=== PATIENT | female | born 1965 | race Hispanic/Latino ===

== ENCOUNTER 2022-05-17 02:57 | Inpatient (IN) | payer OTHER, SELFPAY ==
--- OUTSIDE RECORDS SUMMARY | 2022-05-17 03:02 | XMS REPORT | Continuity of Care Document ---
:1965 Author Organization [facility] t Address [address] [place] [address] Care Team Providers Name Role Phone Jed Ginette Primary Care Physician [phone] Problems This patient has no known problems. Allergies, Adverse Reactions, Alerts This patient has no known allergies or adverse reactions. Medications Ordered Filled Start Stop Current Ordering Indication Dosage Frequency Signature Comments Components Source Medication Medication Date Date Medication? Clinician (SIG) Name Name TAKE 1 2021-06 No TABLET AT 1-18 BEDTIME. 00:00: 00 Dose 2021-06 No Unknown 1-17 00:00: 00 Dose 2021-1 No Unknown 1-17 00:00: 00 Dose 2021-0 No Unknown 6-01 00:00: 00 Dose 2021-0 No Unknown 5-31 00:00: 00 Dose 2021-0 No Unknown 5-31 00:00: 00 Dose 2021-0 No Unknown 5-31 00:00: 00 meloxicam 2021-0 No 1mg 15 mg 4-05 tablet 00:00: 00 Benadryl 2 2021-0 No % % topical 3-23 gel 00:00: 00 triamcinolo 2021-0 No 1% ne 3-23 acetonide 00:00: 0.1 % 00 topical cream triamcinolo 2021-0 No 1% ne 3-23 acetonide 00:00: 0.1 % 00 topical cream Benadryl 2-0 No 1mg Allergy 25 3-23 mg tablet 00:00: 00 Benadryl 2-0 No 1mg Allergy 25 3-23 mg tablet 00:00: 00 Dose 2021-0 No Unknown 3-23 00:00: 00 Dose 2022-0 No Unknown 3-23 00:00: 00 Dose 2022-0 No Unknown 3-23 00:00: 00 Dose 2022-0 No Unknown 3-23 00:00: 00 Dose 2022-0 No Unknown 3-23 00:00: 00 Dose 2022-0 No Unknown 3-23 00:00: 00 Dose 2022-0 No Unknown 3-23 00:00: 00 Dose 2022-0 No Unknown 3-23 00:00: 00 Dose 2022-0 No Unknown 3-23 00:00: 00 atorvastati 2-0 No 1mg n 10 mg 3-17 tablet 00:00: 00 Dose 2022-0 No Unknown 3-15 00:00: 00 Dose 2022-0 No Unknown 3-15 00:00: 00 Dose 2022-0 No Unknown 3-15 00:00: 00 Dose 2022-0 No Unknown 3-15 00:00: 00 Dose 2022-0 No Unknown 3-15 00:00: 00 Dose 2022-0 No Unknown 3-15 00:00: 00 Dose 2022-0 No Unknown 3-15 00:00: 00 Dose 2022-0 No Unknown 3-15 00:00: 00 Dose 2022-0 No Unknown 3-15 00:00: 00 Dose 2022-0 No Unknown 3-15 00:00: 00 Dose 2022-0 No Unknown 3-15 00:00: 00 Dose 2022-0 No Unknown 3-15 00:00: 00 Dose 2022-0 No Unknown 3-15 00:00: 00 Dose 2022-0 No Unknown 3-15 00:00: 00 Dose 2022-0 No Unknown 3-15 00:00: 00 Dose 2022-0 No Unknown 3-15 00:00: 00 Dose 2022-0 No Unknown 3-15 00:00: 00 Dose 2022-0 No Unknown 3-15 00:00: 00 Dose 2022-0 No Unknown 3-15 00:00: 00 Dose 2022-0 No Unknown 3-15 00:00: 00 Dose 2022-0 No Unknown 3-15 00:00: 00 Dose 2022-0 No Unknown 3-15 00:00: 00 Dose 2022-0 No Unknown 3-15 00:00: 00 Dose 2022-0 No Unknown 3-15 00:00: 00 Dose 2022-0 No Unknown 3-15 00:00: 00 Dose 2022-0 No Unknown 3-15 00:00: 00 Dose 2-0 No Unknown 3-15 00:00: 00 Dose 2-0 No Unknown 3-15 00:00: 00 Dose 2022-0 No Unknown 3-15 00:00: 00 Dose 2-0 No Unknown 3-15 00:00: 00 Dose 2-0 No Unknown 3-15 00:00: 00 Dose 2-0 No Unknown 3-15 00:00: 00 Dose 2-0 No Unknown 3-15 00:00: 00 Dose 2-0 No Unknown 3-15 00:00: 00 Dose 2-0 No Unknown 3-15 00:00: 00 Dose 2-0 No Unknown 3-15 00:00: 00 Dose 2-0 No Unknown 3-15 00:00: 00 Dose 2-0 No Unknown 3-15 00:00: 00 Dose 2-0 No Unknown 3-15 00:00: 00 Novolin 2021-0 No unit/mL 70-30 3-15 (70-30) FlexPen 00:00: U-100 00 Insulin 100 unit/mL (70-30) subcutaneou s losartan 50 2021-0 No 1mg mg tablet 3-15 00:00: 00 metformin 2021-0 No 1mg 500 mg 3-15 tablet 00:00: 00 cyclobenzap 2021-0 No 1mg rine 10 mg 3-15 tablet 00:00: 00 Dose 2-0 No Unknown 3-15 00:00: 00 Dose 2-0 No Unknown 3-15 00:00: 00 Dose 2-0 No Unknown 3-15 00:00: 00 Dose 2-0 No Unknown 3-15 00:00: 00 Dose 2-0 No Unknown 3-15 00:00: 00 Dose 2-0 No Unknown 3-15 00:00: 00 benzonatate 2020-1 No 1mg 100 mg 2-20 capsule 00:00: 00 Novolin 1 No unit/mL 70-30 0-18 (70-30) FlexPen 00:00: U-100 00 Insulin 100 unit/mL (70-30) subcutaneou s Caladryl 1 2021-1 No 1% %-8 % 0-18 lotion 00:00: 00 losartan 50 2020-1 No 1mg mg tablet 0-18 00:00: 00 metformin 2020-1 No 1mg 500 mg 0-18 tablet 00:00: 00 loratadine 2020-1 No 1mg 10 mg 0-18 tablet 00:00: 00 metformin 2020-0 No 1mg 500 mg 8-04 tablet 00:00: 00 amoxicillin 2020-0 No 1mg 875 8-04 mg-potassiu 00:00: m 00 clavulanate 125 mg tablet Bromfed DM 2020-0 No 10mg/5 2 mg-30 8-04 mL mg-10 mg/5 00:00: mL oral 00 syrup mupirocin 2 2020-0 No 1% % topical 5-07 ointment 00:00: 00 losartan 50 2020-0 No 1mg mg tablet 5-07 00:00: 00 dicyclomine 2020-0 No 1mg 20 mg 5-07 tablet 00:00: 00 Novolin 2020-0 No unit/mL 70-30 4-30 (70-30) FlexPen 00:00: U-100 00 Insulin 100 unit/mL (70-30) subcutaneou s metformin 2020-0 No 1mg 500 mg 4-30 tablet 00:00: 00 Cipro 500 2020-0 No 1mg mg tablet 4-10 00:00: 00 mupirocin 2 2020-0 No 1% % topical 3-22 ointment 00:00: 00 mupirocin 2 2020-0 No 1% % topical 3-16 ointment 00:00: 00 sulfamethox 2020-0 No 1mg azole 800 3-16 mg-trimetho 00:00: prim 160 mg 00 tablet Valtrex 1 2020-0 No 1gram gram tablet 3-16 00:00: 00 Novolin 2019-06 No unit/mL 70-30 0-15 (70-30) FlexPen 00:00: U-100 00 Insulin 100 unit/mL (70-30) subcutaneou s cephalexin 2019- No 1mg 500 mg 0-15 capsule 00:00: 00 Immunizations Ordered Immunization Filled Immunization Date Status Commen ts Source Name Name [facility], ([employer] [employer]) 2021-09-10 Completed mRNA, LNP-S, PF, 30 00:00:00 mcg/0.3 mL dose, stanley-sucrose Vital Signs Vital Name Observation Time Observation Value Comments Source BP Systolic 2022-05-02 10:10:00 181 mm[Hg] BP Diastolic 2022-05-02 10:10:00 94 mm[Hg] Weight Measured 2022-05-02 10:10:00 174.20 pounds Height Measured 2022-05-02 10:10:00 59.45 inches Body Temperature 2022-05-02 10:10:00 98.00 degrees Heart Rate 2022-05-02 10:10:00 79.00 /min Respiratory Rate 2022-05-02 10:10:00 18.00 /min BP Systolic 2021-11-25 15:12:00 146 mm[Hg] BP Diastolic 2021-11-25 15:12:00 76 mm[Hg] Weight Measured 2021-11-25 15:12:00 172.00 pounds Height Measured 2021-11-25 15:12:00 59.45 inches Body Temperature 2021-11-25 15:12:00 97.90 degrees Heart Rate 2021-11-25 15:12:00 82.00 /min Respiratory Rate 2021-11-25 15:12:00 BP Systolic 2021-09-17 17:15:00 170 mm[Hg] BP Diastolic 2021-09-17 17:15:00 106 mm[Hg] Weight Measured 2021-09-17 17:15:00 173.00 pounds Height Measured 2021-09-17 17:15:00 59.45 inches Body Temperature 2021-09-17 17:15:00 98.10 degrees Heart Rate 2021-09-17 17:15:00 85.00 /min Respiratory Rate 2021-09-17 17:15:00 16.00 /min BP Systolic 2021-08-27 17:07:00 164 mm[Hg] BP Diastolic 2021-08-27 17:07:00 90 mm[Hg] Weight Measured 2021-08-27 17:07:00 170.40 pounds Height Measured 2021-08-27 17:07:00 59.45 inches Body Temperature 2021-08-27 17:07:00 97.30 degrees Heart Rate 2021-08-27 17:07:00 Respiratory Rate 2021-08-27 17:07:00 BP Systolic 2021-06-03 14:25:00 BP Diastolic 2021-06-03 14:25:00 Weight Measured 2021-06-03 14:25:00 160.00 pounds Height Measured 2021-06-03 14:25:00 59.45 inches Body Temperature 2021-06-03 14:25:00 Heart Rate 2021-06-03 14:25:00 Respiratory Rate 2021-06-03 14:25:00 BP Systolic 2021-04-01 10:05:00 156 mm[Hg] BP Diastolic 2021-04-01 10:05:00 84 mm[Hg] Weight Measured 2021-04-01 10:05:00 164.80 pounds Height Measured 2021-04-01 10:05:00 59.45 inches Body Temperature 2021-04-01 10:05:00 97.60 degrees Heart Rate 2021-04-01 10:05:00 90.00 /min Respiratory Rate 2021-04-01 10:05:00 BP Systolic 2020-10-19 13:33:00 150 mm[Hg] BP Diastolic 2020-10-19 13:33:00 76 mm[Hg] Weight Measured 2020-10-19 13:33:00 172.00 pounds Height Measured 2020-10-19 13:33:00 59.45 inches Body Temperature 2020-10-19 13:33:00 99.10 degrees Heart Rate 2020-10-19 13:33:00 86.00 /min Respiratory Rate 2020-10-19 13:33:00 17.00 /min BP Systolic 2020-10-12 16:40:00 157 mm[Hg] BP Diastolic 2020-10-12 16:40:00 71 mm[Hg] Weight Measured 2020-10-12 16:40:00 170.80 pounds Height Measured 2020-10-12 16:40:00 61.00 inches Body Temperature 2020-10-12 16:40:00 98.30 degrees Heart Rate 2020-10-12 16:40:00 76.00 /min Respiratory Rate 2020-10-12 16:40:00 17.00 /min BP Systolic 2020-09-22 13:58:00 151 mm[Hg] BP Diastolic 2020-09-22 13:58:00 81 mm[Hg] Weight Measured 2020-09-22 13:58:00 174.00 pounds Height Measured 2020-09-22 13:58:00 61.00 inches Body Temperature 2020-09-22 13:58:00 98.40 degrees Heart Rate 2020-09-22 13:58:00 88.00 /min Respiratory Rate 2020-09-22 13:58:00 18.00 /min BP Systolic 2020-08-28 10:01:00 180 mm[Hg] BP Diastolic 2020-08-28 10:01:00 104 mm[Hg] Weight Measured 2020-08-28 10:01:00 174.20 pounds Height Measured 2020-08-28 10:01:00 61.00 inches Body Temperature 2020-08-28 10:01:00 98.60 degrees Heart Rate 2020-08-28 10:01:00 86.00 /min Respiratory Rate 2020-08-28 10:01:00 16.00 /min Procedures This patient has no known procedures. Plan of Care Planned Activity Planned Date Details Comments Source Goal Plan of Care Note [code = 09538-3] Goal Plan of Care Note [code = 17068-5] Goal Plan of Care Note [code = 79571-7] Goal Plan of Care Note [code = 81012-7] Goal Plan of Care Note [code = 44365-2] Goal Plan of Care Note [code = 35882-7] Goal Plan of Care Note [code = 37000-7] Goal Plan of Care Note [code = 62142-7] Goal Plan of Care Note [code = 11883-7] Goal Plan of Care Note [code = 80961-1] Goal Plan of Care Note [code = 66723-2] Goal Plan of Care Note [code = 61109-8] Goal Plan of Care Note [code = 71739-2] Goal Plan of Care Note [code = 08658-7] Goal Plan of Care Note [code = 93589-5] Goal Plan of Care Note [code = 15520-1] Goal Plan of Care Note [code = 76614-5] Goal Plan of Care Note [code = 46168-2] Goal Plan of Care Note [code = 70720-2] Goal Plan of Care Note [code = 33507-3] Goal Plan of Care Note [code = 62887-4] Goal Plan of Care Note [code = 67949-4] Goal Plan of Care Note [code = 59693-5] Goal Plan of Care Note [code = 30003-0] Goal Plan of Care Note [code = 28217-9] Encounters Start End Encounter Admission Attending Care Care Encounter Source Date/Time Date/Time Type Type Clinicians Facility Department ID 2022-05-16 2022-05-16 Outpatient [facility] [id number] 022 Leonardo 10:34:16 10:34:16 [address] [place] 2022-05-02 2022-05-02 Outpatient [facility] [id number] Leonardo 10:03:25 10:03:25 [address] [place] 2022-05-02 2022-05-02 Outpatient [id number] ae [id number] 00:00:00 00:00:00 Visit [id number] Results Test Description Test Time Test Comments Results Result Comments Source HEMOGLOBIN A1c 2021-08-29 08:26:50 Test Item Value Reference Range Interpretation Comme nts HEMOGLOBIN A1c (test code = 12.8 % 4.2-5.6 H [employer] 28669) GUIDELINES FOR HGB A1C: PREDIABETES/INC REASED RISK . . . . . . . 5.7-6.4% DIAG NOSIS OF DIABETES . . . . . . . . . >=6 .5% WITH CONFIRMATION OR APPROPRIATE SYM PTOMS NOTE: ASSAY MAY BE AFFECTED BY HEM OGLOBINOPATHIES (SICKLE CELL ANEMIA, S- C DISEASE, OTHERS) OR ARTIFICIALLY LO WERED BY DECREASED RED CELL SURVIVAL ( HEMOLYTIC ANEMIAS, BLOOD LOSS, ETC.). CO NSIDER ALTERNATE TESTING OR LABORATORY C ONSULTATION. UNLESS OTHERWISE INDIC ATED, ALL TESTING PERFORMED [facility], [facility]. [address] [place] [id number] [place] [address] DEION DIRECTOR: DARSHANA JAMES M.D. CLIA NUMBER [id number] [place] [id number] COMPREHENSIVE METABOLIC [id number] 02:55:12 Test Item Value Reference Range Interpretation Comments GLUCOSE (test code = 86 MG/DL 70-99 2216) BUN (test code = 21 MG/DL 6-20 H 2207) CREATININE (test 0.63 MG/DL 0.60-1.30 code = 2214) eGFR (2020 CKD-EPI) 103 >60 (test code = 88279) ML/MIN/1.73 CALC BUN/CREAT (test 33 RATIO 6-28 H code = 2235) SODIUM (test code = 142 MEQ/L 660-513 4686) POTASSIUM (test code 5.1 MEQ/L 3.5-5.4 = 2227) CHLORIDE (test code 103 MEQ/L 95-107 = 2214) CARBON DIOXIDE (test 27 MEQ/L 19-31 code = 220) CALCIUM (test code = 9.9 MG/DL 8.5-10.5 2208) PROTEIN, TOTAL (test 7.0 G/DL 6.1-8.3 code = 222) ALBUMIN (test code = 4.0 G/DL 3.5-5.2 2200) CALC GLOBULIN (test 3.0 G/DL 1.9-3.7 code = 2240) CALC A/G RATIO (test 1.3 RATIO 1.0-2.6 code = 2234) BILIRUBIN, TOTAL <0.2 MG/DL See_Comment [Automated message] (test code = 2207) The syste m which generated this result transmit phoebe reference range : <=1.2. The refe rence range was not u sed to interpret th is result as normal/abnormal . ALKALINE PHOSPHATASE 90 U/L 40-136 (test code = 2204) AST (test code = 16 U/L 9-40 2217) ALT (test code = 15 U/L 5-40 2218) LIPID [id number] 02:55:12 Test Item Value Reference Range Interpretation Comments CHOLESTEROL (test 250 MG/DL <200 H code = 2210) TRIGLYCERIDES (test 200 MG/DL <150 H code = 2232) HDL CHOLESTEROL (test 48 MG/DL >39 code = 2220) CALC LDL CHOL (test 166 MG/DL <100 H NOTE: C ALCULATED LDL code = 2237) IS BASED ON JONEL-COBOS METHOD WHICHINCLUDES ADJUSTABLE TRIGLYCERIDE:VL DL CHOLESTEROL RAT IO.THIS FACTOR VARIES B Y MEASURED TRIGLY CERIDE AND NON-HDLCHOL ESTEROL CONCENTRATIONS WITH INCREASED CALCU LATED LDL SEENIN HIGH ER TRIGLYCERIDE OR LOWER NON-HDL SPECIME NS. FOR MOREINFORMATION , SEE CLIENT ANNOUNCE MENT AT [email or web address] RISK RATIO LDL/HDL 3.46 RATIO <3.22 H (test code = 2238) COMPREHENSIVE METABOLIC [id number] 00:00:00 Test Item Value Reference Range Interpretation Comments GLUCOSE (test code = 2217) 86 MG/DL BUN (test code = 2208) 21 MG/DL CREATININE (test code = 2214) 0.63 MG/DL eGFR (2020 CKD-EPI) (test 103 ML/MIN/1.73 code = 62562) CALC BUN/CREAT (test code = 33 RATIO 2235) SODIUM (test code = 2231) 142 MEQ/L POTASSIUM (test code = 2228) 5.1 MEQ/L CHLORIDE (test code = 2215) 103 MEQ/L CARBON DIOXIDE (test code = 27 MEQ/L 2205) CALCIUM (test code = 2209) 9.9 MG/DL PROTEIN, TOTAL (test code = 7.0 G/DL 2228) ALBUMIN (test code = 2201) 4.0 G/DL CALC GLOBULIN (test code = 3.0 G/DL 2240) CALC A/G RATIO (test code = 1.3 RATIO 4) BILIRUBIN, TOTAL (test code = <0.2 MG/DL 2206) ALKALINE PHOSPHATASE (test 90 U/L code = 2204) AST (test code = 2218) 16 U/L ALT (test code = 2219) 15 U/L LIPID [id number] 00:00:00 Test Item Value Reference Range Interpretation Comments CHOLESTEROL (test code = 2210) 250 MG/DL TRIGLYCERIDES (test code = 2232) 200 MG/DL HDL CHOLESTEROL (test code = 2220) 48 MG/DL CALC LDL CHOL (test code = 2237) 166 MG/DL RISK RATIO LDL/HDL (test code = 3.46 RATIO 2238) LIPID [id number] 00:00:00 Test Item Value Reference Range Interpretation Comments CHOLESTEROL (test code = 2210) 250 MG/DL TRIGLYCERIDES (test code = 2232) 200 MG/DL HDL CHOLESTEROL (test code = 2220) 48 MG/DL CALC LDL CHOL (test code = 2237) 166 MG/DL RISK RATIO LDL/HDL (test code = 3.46 RATIO 2238) HEMOGLOBIN [id number] 00:00:00 Test Item Value Reference Range Interpretation Comments HEMOGLOBIN A1c (test code = 12302) 12.8 % HEMOGLOBIN [id number] 00:00:00 Test Item Value Reference Range Interpretation Comments HEMOGLOBIN A1c (test code = 02949) 12.8 % HEMOGLOBIN [id number] 00:00:00 Test Item Value Reference Range Interpretation Comments HEMOGLOBIN A1c (test code = 43338) 12.8 % COMPREHENSIVE METABOLIC [id number] 00:00:00 Test Item Value Reference Range Interpretation Comments GLUCOSE (test code = 2217) 86 MG/DL BUN (test code = 2208) 21 MG/DL CREATININE (test code = 2214) 0.63 MG/DL eGFR (2020 CKD-EPI) (test 103 ML/MIN/1.73 code = 39577) CALC BUN/CREAT (test code = 33 RATIO 223) SODIUM (test code = 2231) 142 MEQ/L POTASSIUM (test code = 2228) 5.1 MEQ/L CHLORIDE (test code = 2215) 103 MEQ/L CARBON DIOXIDE (test code = 27 MEQ/L 2205) CALCIUM (test code = 2209) 9.9 MG/DL PROTEIN, TOTAL (test code = 7.0 G/DL 2228) ALBUMIN (test code = 2201) 4.0 G/DL CALC GLOBULIN (test code = 3.0 G/DL 2239) CALC A/G RATIO (test code = 1.3 RATIO 4) BILIRUBIN, TOTAL (test code = <0.2 MG/DL 2206) ALKALINE PHOSPHATASE (test 90 U/L code = 2204) AST (test code = 2218) 16 U/L ALT (test code = 2219) 15 U/L HEMOGLOBIN [id number] 00:00:00 Test Item Value Reference Range Interpretation Comments HEMOGLOBIN A1c (test code = 31672) 13.3 % HEMOGLOBIN [id number] 00:00:00 Test Item Value Reference Range Interpretation Comments HEMOGLOBIN A1c (test code = 99573) 13.3 % HEMOGLOBIN [id number] 00:00:00 Test Item Value Reference Range Interpretation Comments HEMOGLOBIN A1c (test code = 31334) 13.3 % COMPREHENSIVE METABOLIC [id number] 00:00:00 Test Item Value Reference Range Interpretation Comments GLUCOSE (test code = 2217) 619 MG/DL BUN (test code = 2208) 17 MG/DL CREATININE (test code = 2214) 0.72 MG/DL eGFR AMER. (test code 108 ML/MIN/1.73 = 74832) eGFR NON- AMER. (test 94 ML/MIN/1.73 code = 65825) CALC BUN/CREAT (test code = 24 RATIO 2235) SODIUM (test code = 2231) 135 MEQ/L POTASSIUM (test code = 2228) 4.6 MEQ/L CHLORIDE (test code = 2215) 97 MEQ/L CARBON DIOXIDE (test code = 25 MEQ/L 2205) CALCIUM (test code = 2209) 9.6 MG/DL PROTEIN, TOTAL (test code = 6.8 G/DL 2228) ALBUMIN (test code = 2201) 3.8 G/DL CALC GLOBULIN (test code = 3.0 G/DL 2240) CALC A/G RATIO (test code = 1.3 RATIO 2234) BILIRUBIN, TOTAL (test code = 0.3 MG/DL 2206) ALKALINE PHOSPHATASE (test 117 U/L code = 2204) AST (test code = 2218) 14 U/L ALT (test code = 2219) 19 U/L COMPREHENSIVE METABOLIC [id number] 00:00:00 Test Item Value Reference Range Interpretation Comments GLUCOSE (test code = 2217) 619 MG/DL BUN (test code = 2208) 17 MG/DL CREATININE (test code = 2214) 0.72 MG/DL eGFR AMER. (test code 108 ML/MIN/1.73 = 92136) eGFR NON- AMER. (test 94 ML/MIN/1.73 code = 29760) CALC BUN/CREAT (test code = 24 RATIO 2235) SODIUM (test code = 2231) 135 MEQ/L POTASSIUM (test code = 2228) 4.6 MEQ/L CHLORIDE (test code = 2215) 97 MEQ/L CARBON DIOXIDE (test code = 25 MEQ/L 220) CALCIUM (test code = 2209) 9.6 MG/DL PROTEIN, TOTAL (test code = 6.8 G/DL 2228) ALBUMIN (test code = 2201) 3.8 G/DL CALC GLOBULIN (test code = 3.0 G/DL 224) CALC A/G RATIO (test code = 1.3 RATIO 2234) BILIRUBIN, TOTAL (test code = 0.3 MG/DL 2206) ALKALINE PHOSPHATASE (test 117 U/L code = 2204) AST (test code = 2218) 14 U/L ALT (test code = 2219) 19 U/L H. PYLORI (BREATH)2020-09-25 00:00:00 Test Item Value Reference Range Interpretation Comments H. PYLORI (BREATH) (test code = NEGATIVE 78163) H. PYLORI (BREATH)2020-09-25 00:00:00 Test Item Value Reference Range Interpretation Comments H. PYLORI (BREATH) (test code = NEGATIVE 78556) COMPREHENSIVE METABOLIC [id number] 00:00:00 Test Item Value Reference Range Interpretation Comments GLUCOSE (test code = 2217) 477 MG/DL BUN (test code = 2208) 19 MG/DL CREATININE (test code = 2214) 0.66 MG/DL eGFR AMER. (test code 114 ML/MIN/1.73 = 62552) eGFR NON- AMER. (test 99 ML/MIN/1.73 code = 95322) CALC BUN/CREAT (test code = 29 RATIO 2235) SODIUM (test code = 2231) 136 MEQ/L POTASSIUM (test code = 2228) 4.8 MEQ/L CHLORIDE (test code = 2215) 97 MEQ/L CARBON DIOXIDE (test code = 27 MEQ/L 2205) CALCIUM (test code = 2209) 9.5 MG/DL PROTEIN, TOTAL (test code = 7.2 G/DL 2228) ALBUMIN (test code = 2201) 4.1 G/DL CALC GLOBULIN (test code = 3.1 G/DL 224) CALC A/G RATIO (test code = 1.3 RATIO 2234) BILIRUBIN, TOTAL (test code = 0.3 MG/DL 2206) ALKALINE PHOSPHATASE (test 112 U/L code = 2204) AST (test code = 2218) 16 U/L ALT (test code = 2219) 16 U/L COMPREHENSIVE METABOLIC [id number] 00:00:00 Test Item Value Reference Range Interpretation Comments GLUCOSE (test code = 2217) 477 MG/DL BUN (test code = 2208) 19 MG/DL CREATININE (test code = 2214) 0.66 MG/DL eGFR AMER. (test code 114 ML/MIN/1.73 = 78916) eGFR NON- AMER. (test 99 ML/MIN/1.73 code = 38920) CALC BUN/CREAT (test code = 29 RATIO 2235) SODIUM (test code = 2231) 136 MEQ/L POTASSIUM (test code = 2228) 4.8 MEQ/L CHLORIDE (test code = 2215) 97 MEQ/L CARBON DIOXIDE (test code = 27 MEQ/L 2205) CALCIUM (test code = 2209) 9.5 MG/DL PROTEIN, TOTAL (test code = 7.2 G/DL 2228) ALBUMIN (test code = 220) 4.1 G/DL CALC GLOBULIN (test code = 3.1 G/DL 2239) CALC A/G RATIO (test code = 1.3 RATIO 2233) BILIRUBIN, TOTAL (test code = 0.3 MG/DL 2206) ALKALINE PHOSPHATASE (test 112 U/L code = 2204) AST (test code = 2218) 16 U/L ALT (test code = 2219) 16 U/L [id number] 00:00:00 Test Item Value Reference Range Interpretation Comments AMYLASE (test code = 2205) 46 U/L [id number] 00:00:00 Test Item Value Reference Range Interpretation Comments AMYLASE (test code = 5) 46 U/L [id number] 00:00:00 Test Item Value Reference Range Interpretation Comments LIPASE (test code = 2057) 54 U/L [id number] 00:00:00 Test Item Value Reference Range Interpretation Comments LIPASE (test code = 2057) 54 U/L [id number] 00:00:00 Test Item Value Reference Range Interpretation Comments LIPASE (test code = 2057) 54 U/L CBC W/AUTO [id number] 00:00:00 Test Item Value Reference Range Interpretation Comments WBC (test code = 1001) 8.8 K/UL RBC (test code = 1002) 5.51 M/UL HEMOGLOBIN (test code = 1003) 14.8 G/DL HEMATOCRIT (test code = 1004) 45.5 % MCV (test code = 1005) 82.6 fL MCH (test code = 1006) 26.9 PG MCHC (test code = 1007) 32.5 G/DL RDW (test code = 1038) 12.6 % NEUTROPHILS (test code = 1008) 71.4 % LYMPHOCYTES (test code = 1010) 21.7 % MONOCYTES (test code = 1011) 3.9 % EOSINOPHILS (test code = 1012) 2.2 % BASOPHILS (test code = 1013) 0.8 % PLATELET COUNT (test code = 1015) 226 K/UL CBC W/AUTO [id number] 00:00:00 Test Item Value Reference Range Interpretation Comments WBC (test code = 1001) 8.8 K/UL RBC (test code = 1002) 5.51 M/UL HEMOGLOBIN (test code = 1003) 14.8 G/DL HEMATOCRIT (test code = 1004) 45.5 % MCV (test code = 1005) 82.6 fL MCH (test code = 1006) 26.9 PG MCHC (test code = 1007) 32.5 G/DL RDW (test code = 1038) 12.6 % NEUTROPHILS (test code = 1008) 71.4 % LYMPHOCYTES (test code = 1010) 21.7 % MONOCYTES (test code = 1011) 3.9 % EOSINOPHILS (test code = 1012) 2.2 % BASOPHILS (test code = 1013) 0.8 % PLATELET COUNT (test code = 1015) 226 K/UL CBC W/AUTO [id number] 00:00:00 Test Item Value Reference Range Interpretation Comments WBC (test code = 1001) 8.8 K/UL RBC (test code = 1002) 5.51 M/UL HEMOGLOBIN (test code = 1003) 14.8 G/DL HEMATOCRIT (test code = 1004) 45.5 % MCV (test code = 1005) 82.6 fL MCH (test code = 1006) 26.9 PG MCHC (test code = 1007) 32.5 G/DL RDW (test code = 1038) 12.6 % NEUTROPHILS (test code = 1008) 71.4 % LYMPHOCYTES (test code = 1010) 21.7 % MONOCYTES (test code = 1011) 3.9 % EOSINOPHILS (test code = 1012) 2.2 % BASOPHILS (test code = 1013) 0.8 % PLATELET COUNT (test code = 1015) 226 K/UL HEMOGLOBIN [id number] 00:00:00 Test Item Value Reference Range Interpretation Comments HEMOGLOBIN A1c (test code = 65521) 11.1 % HEMOGLOBIN [id number] 00:00:00 Test Item Value Reference Range Interpretation Comments HEMOGLOBIN A1c (test code = 18933) 11.1 % HEMOGLOBIN [id number] 00:00:00 Test Item Value Reference Range Interpretation Comments HEMOGLOBIN A1c (test code = 29643) 11.1 % SARS-CoV-2 (COVID-19) by RT-PCR (HIGH RISK)2020-01-11 00:00:00 Test Item Value Reference Range Interpretation Comments SARS-CoV-2 INTERPRETATION (test NEGATIVE code = 99668) SOURCE (test code = 19782) NOT SPECIFIED SARS-CoV-2 (COVID-19) by RT-PCR (HIGH RISK)2020-01-11 00:00:00 Test Item Value Reference Range Interpretation Comments SARS-CoV-2 INTERPRETATION (test NEGATIVE code = 53127) SOURCE (test code = 05032) NOT SPECIFIED SARS-CoV-2 (COVID-19) by RT-PCR (HIGH RISK)2019-12-30 00:00:00 Test Item Value Reference Range Interpretation Comments SARS-CoV-2 PRESUMPTIVE POSITIVE INTERPRETATION (test code = 88026) SOURCE (test code = NASOPHARYNGEAL 02965) SARS-CoV-2 (COVID-19) by RT-PCR (HIGH RISK)2019-12-30 00:00:00 Test Item Value Reference Range Interpretation Comments SARS-CoV-2 PRESUMPTIVE POSITIVE INTERPRETATION (test code = 44210) SOURCE (test code = NASOPHARYNGEAL 98844) SARS-CoV-2 (COVID-19) by RT-PCR (HIGH RISK)2019-12-18 00:00:00 Test Item Value Reference Range Interpretation Comments SARS-CoV-2 INTERPRETATION (test POSITIVE code = 08265) SOURCE (test code = 04680) NOT SPECIFIED SARS-CoV-2 (COVID-19) by RT-PCR (HIGH RISK)2019-12-18 00:00:00 Test Item Value Reference Range Interpretation Comments SARS-CoV-2 INTERPRETATION (test POSITIVE code = 49417) SOURCE (test code = 44798) NOT SPECIFIED
[2022-05-17] MEDS ORDERED: LABETALOL 20 MG/4ML SYRINGE IV ONE (03:38)
[2022-05-17 03:50] LABS: Hematocrit 41.4 % (36.0-45.0); Lymphocytes % 28.7 % (15.3-44.8); MCV 81.1 fL (80-100); MPV 9.4 fL (7.6-11.3)
[2022-05-17 03:56] LABS: Protime INR 0.83
[2022-05-17 04:15] LABS: Troponin High Sensitivity 8.3 pg/mL (<58.9)
[2022-05-17] MEDS ORDERED: ASPIRIN EC 81 MG TAB PO ONE (06:39)
--- NOTE | 2022-05-17 07:08 | EDPHYS ---
Physician Documentation [facility] Name: Colleen Hall Age: 57 yrs Sex: Female : 1965 Arrival Date: 05/17/2022 Time: 03:06 Bed 5 Private MD: ED Physician Uriel Ibarra HPI: 05/17 03:40 This 57 yrs old Female presents to ER via Ambulatory with complaints of right ms3 facial weakness and right arm numbness. 03:40 The patient's problem is reported as a facial droop, on right, paresthesias, in right ms3 upper extremity. Onset: The symptoms/episode began/occurred 8 PM. The symptoms are alleviated by nothing. The symptoms are aggravated by nothing. Associated signs and symptoms: The patient has no apparent associated signs or symptoms. Severity of symptoms: At their worst the symptoms were mild in the emergency department the symptoms have improved. Historical: - Allergies: 03:11 No Known Allergies; tw5 - PMHx: 03:11 Diabetes - NIDDM; Hypertension; MRSA; tw5 - PSHx: 05:39 right nephrectomy; Skin grafting; kl - Immunization history:: Flu vaccine is up to date. - Social history:: Smoking status: Patient denies any tobacco usage or history of. ROS: 03:40 Constitutional: Negative for fever, and chills. Neck: Negative for injury, pain, and ms3 swelling, Cardiovascular: Negative for chest pain, and palpitations. Respiratory: Negative for shortness of breath, cough, wheezing, and pleuritic chest pain, Abdomen/GI: Negative for abdominal pain, nausea, vomiting, diarrhea, and constipation, MS/Extremity: Negative for injury and deformity. 03:40 Neuro: Positive for numbness. 03:40 All other systems are negative. Exam: 03:34 ECG was reviewed by the Attending Physician. ms3 03:40 Constitutional: This is a well developed, well nourished patient who is awake, alert, ms3 and in no acute distress. 03:40 Neck: Trachea midline, no cervical lymphadenopathy. Supple, full range of motion without nuchal rigidity, or vertebral point tenderness. No Meningismus. Chest/axilla: Normal chest wall appearance and motion. Nontender with no deformity. Cardiovascular: Regular rate and rhythm with a normal S1 and S2. No gallops, murmurs, or rubs. Normal PMI, no JVD. No pulse deficits. Respiratory: Lungs have equal breath sounds bilaterally, clear to auscultation and percussion. No rales, rhonchi or wheezes noted. No increased work of breathing, no retractions or nasal flaring. Abdomen/GI: Soft, non-tender, with normal bowel sounds. No distension or tympany. No guarding or rebound. No evidence of tenderness throughout. Skin: Warm, dry with normal turgor. Normal color with no rashes, no lesions, and no evidence of cellulitis. MS/ Extremity: Pulses equal, no cyanosis. Neurovascular intact. Full, normal range of motion. 03:40 Head/face: Noted is mild facial droop. 03:40 Neuro: Orientation: is normal, Mentation: is normal, Memory: is normal, Cerebellar function: is grossly normal, normal finger to nose testing, Motor: is normal, Sensation: no obvious gross deficits. 06:26 Radiologist reports: Negative acute ms3 Vital Signs: 03:06 BP 209 / 98; Pulse 83; Resp 18; Temp 98.3; Pulse Ox 96% ; Weight 78.02 kg; Height 5 ft. tw5 0 in. (152.40 cm); Pain 8/10; 03:45 BP 175 / 86; Pulse 74; kl 04:00 BP 173 / 75; Pulse Ox 92% ; kl 04:30 BP 172 / 80; Pulse 82; Resp 16; Pulse Ox 98% ; kl 05:00 BP 178 / 74; kl 06:09 BP 147 / 73; Pulse 71; Pulse Ox 93% on R/A; kl 07:38 BP 177 / 95; Pulse 78; Resp 18; Temp 98.3; Pulse Ox 100% on R/A; Pain 5/10; mb9 09:33 BP 149 / 67; Pulse 75; Resp 18; Pulse Ox 95% on R/A; mb9 11:44 BP 163 / 79; Pulse 77; Resp 18; Pulse Ox 98% on R/A; Pain 0/10; mb9 03:06 Body Mass Index 33.59 (78.02 kg, 152.40 cm) tw5 NIH Stroke Scale Scores: 03:15 NIHSS Score: 1 kl 03:40 NIHSS Score: 1 ms3 07:39 NIHSS Score: 1 mb9 MDM: 03:18 Patient medically screened. ms3 06:26 Data reviewed: vital signs, nurses notes, lab test result(s), EKG, radiologic studies, ms3 and as a result, I will admit patient. Counseling: I had a detailed discussion with the patient and/or guardian regarding: the historical points, exam findings, and any diagnostic results supporting the discharge/admit diagnosis, lab results, radiology results, the need for further work-up and treatment in the hospital. 12 03:18 Order name: Basic Metabolic Panel ms3 05/17 03:18 Order name: CBC with Diff ms3 05/17 03:18 Order name: High Sensitivity Troponin ms3 05/17 03:18 Order name: Protime (+inr) ms3 05/17 03:18 Order name: Ptt, Activated ms3 05/17 06:29 Order name: SARS RAPID ds4 05/17 03:18 Order name: CXR XRAY ms3 05/17 03:18 Order name: CT Head Brain wo Cont ms3 05/17 07:09 Order name: SARS-COV-2 Antigen Rapid EDMS 05/17 08:39 Order name: Abdomen EDMS 05/17 08:39 Order name: Urinalysis W/Microscopic EDMS 05/17 08:43 Order name: Glucose, Ancillary Testing EDMS 05/17 03:18 Order name: EKG; Complete Time: 03:18 ms3 05/17 03:18 Order name: Accucheck; Complete Time: 05:37 ms3 05/17 03:18 Order name: Cardiac monitoring; Complete Time: 05:37 ms3 05/17 03:18 Order name: EKG - Nurse/Tech; Complete Time: 03:36 ms3 05/17 03:18 Order name: IV Saline Lock; Complete Time: 03:36 ms3 05/17 03:18 Order name: Labs collected and sent; Complete Time: 03:36 ms3 05/17 03:18 Order name: NPO; Complete Time: 05:37 ms3 05/17 03:18 Order name: O2 Per Protocol; Complete Time: 03:36 ms3 05/17 03:18 Order name: O2 Sat Monitoring; Complete Time: 03:36 ms3 05/17 03:18 Order name: Stroke Swallow Screen; Complete Time: 05:37 ms3 EC:34 Rate is 67 beats/min. Rhythm is regular. QRS Byron is Normal. NH interval is normal. QRS ms3 interval is normal. Clinical impression: Normal ECG. Interpreted by me. Reviewed by me. Administered Medications: 04:00 Drug: Labetalol 10 mg Route: IV; Rate: calculated rate; Site: left antecubital; kl 06:26 Follow up: Response: No adverse reaction kl 06:41 Drug: Aspirin 81 mg Route: PO; Disposition Summary: 05/17/22 06:19 Hospitalization Ordered Hospitalization Status: Inpatient Admission ms3 Provider: John Garza ms3 Condition: Stable ms3 Problem: new ms3 Symptoms: are unchanged ms3 Bed/Room Type: Standard ms3 Location: Telemetry/MedSurg (Inpatient)(05/17/22 14:32) eb Room Assignment: 411(05/17/22 14:32) eb Diagnosis - Facial Droop ms3 - Right arm numbness ms3 - Essential (primary) hypertension ms3 - Hyperglycemia, unspecified ms3 Forms: - Medication Reconciliation Form ms3 - SBAR form ms3 NIH Stroke Scale - NIH Stroke Score Date: 05/17/2022 Time: 03:15 Total Score = 1 1a. Level of Consciousness (LOC) - 0(Alert) 1b. Level of Consciousness (LOC) (Month \T\ Age) - 0(Both) 1c. LOC Commands (Open \T\ Closes Eyes/Cowlman) - 0(Both) 2. Best Gaze (Lateral Gaze Paresis) - 0(Normal) 3. Visual Field Loss - 0(No visual loss) 4. Facial Palsy - 1(Minor Paralysis) 5a. Left Arm: Motor (10-second hold) - 0(No drift) 5b. Right Arm: Motor (10-second hold) - 0(No drift) 6a. Left Leg: Motor (5-second hold - always test supine) - 0(No drift) 6b. Right Leg: Motor (5-second hold - always test supine) - 0(No drift) 7. Limb Ataxia (finger/nose \T\ heel/castro - test with eyes open) - 0(Absent) 8. Sensory Loss (pinprick arms/legs/face) - 0(Normal) 9. Best Language: Aphasia (description/naming/reading) - 0(No aphasia) 10. Dysarthria (speech clarity - read or repeat words) - 0(Normal) 11. Extinction and Inattention (visual/tactile/auditory/spatial/personal) - 0(No abnormality) Initials: kl NIH Stroke Scale - NIH Stroke Score Date: 05/17/2022 Time: 03:40 Total Score = 1 1a. Level of Consciousness (LOC) - 0(Alert) 1b. Level of Consciousness (LOC) (Month \T\ Age) - 0(Both) 1c. LOC Commands (Open \T\ Closes Eyes/Cowlman) - 0(Both) 2. Best Gaze (Lateral Gaze Paresis) - 0(Normal) 3. Visual Field Loss - 0(No visual loss) 4. Facial Palsy - 1(Minor Paralysis) 5a. Left Arm: Motor (10-second hold) - 0(No drift) 5b. Right Arm: Motor (10-second hold) - 0(No drift) 6a. Left Leg: Motor (5-second hold - always test supine) - 0(No drift) 6b. Right Leg: Motor (5-second hold - always test supine) - 0(No drift) 7. Limb Ataxia (finger/nose \T\ heel/castro - test with eyes open) - 0(Absent) 8. Sensory Loss (pinprick arms/legs/face) - 0(Normal) 9. Best Language: Aphasia (description/naming/reading) - 0(No aphasia) 10. Dysarthria (speech clarity - read or repeat words) - 0(Normal) 11. Extinction and Inattention (visual/tactile/auditory/spatial/personal) - 0(No abnormality) Initials: ms3 NIH Stroke Scale - NIH Stroke Score Date: 05/17/2022 Time: 07:39 Total Score = 1 1a. Level of Consciousness (LOC) - 0(Alert) 1b. Level of Consciousness (LOC) (Month \T\ Age) - 0(Both) 1c. LOC Commands (Open \T\ Closes Eyes/Cowlman) - 0(Both) 2. Best Gaze (Lateral Gaze Paresis) - 0(Normal) 3. Visual Field Loss - 0(No visual loss) 4. Facial Palsy - 1(Minor Paralysis) 5a. Left Arm: Motor (10-second hold) - 0(No drift) 5b. Right Arm: Motor (10-second hold) - 0(No drift) 6a. Left Leg: Motor (5-second hold - always test supine) - 0(No drift) 6b. Right Leg: Motor (5-second hold - always test supine) - 0(No drift) 7. Limb Ataxia (finger/nose \T\ heel/castro - test with eyes open) - 0(Absent) 8. Sensory Loss (pinprick arms/legs/face) - 0(Normal) 9. Best Language: Aphasia (description/naming/reading) - 0(No aphasia) 10. Dysarthria (speech clarity - read or repeat words) - 0(Normal) 11. Extinction and Inattention (visual/tactile/auditory/spatial/personal) - 0(No abnormality) Initials: mb9 Signatures: Dispatcher [employer] Desiree Ash RN Radha Torrez RN RN Denae Pretty Marcus, DO DO ms3 Smith Paola tw5 Corrections: (The following items were deleted from the chart) 06:28 06:19 Telemetry/MedSurg (Inpatient) ms3 mw 06:28 06:19 ms3 mw 14:32 06:28 [facility] ER HOLD mw eb 14:32 06:28 ERHOLD- mw eb
--- NOTE | 2022-05-17 07:08 | ER ---
Nurse's Notes [facility] Name: Colleen Hall Age: 57 yrs Sex: Female : 1965 Arrival Date: 05/17/2022 Time: 03:06 Bed 5 Private MD: Diagnosis: Facial Droop;Right arm numbness;Essential (primary) hypertension;Hyperglycemia, unspecified Presentation: 05/17 03:06 Chief complaint: Patient states: "This morning I went to a clinic, and they wanted to tw5 change my medication. Around 10 PM I started to feel numbness on the right side of my face and my blood pressure was 200. I started to feel pain in my back. I also just felt like my face feels sleepy especially around my mouth. ". Coronavirus screen: Vaccine status: Patient reports receiving the 2nd dose of the covid vaccine. [employer]. Ebola Screen: Patient negative for fever greater than or equal to 101.5 degrees Fahrenheit, and additional compatible Ebola Virus Disease symptoms Patient denies exposure to infectious person. Patient denies travel to an Ebola-affected area in the 21 days before illness onset. Initial Sepsis Screen: Does the patient meet any 2 criteria? No. Patient's initial sepsis screen is negative. Does the patient have a suspected source of infection? No. Patient's initial sepsis screen is negative. Risk Assessment: Do you want to hurt yourself or someone else? Patient reports no desire to harm self or others. Onset of symptoms was May 16, 2022 at 22:00. 03:06 Method Of Arrival: Ambulatory tw5 03:06 Acuity: MARIELA 2 tw5 06:27 Note pt reports last known normal 05/16/2022 at 8pm. Triage Assessment: 03:11 General: Appears in no apparent distress. Behavior is calm, cooperative, appropriate tw5 for age. Pain: Complains of pain in back Pain currently is 8 out of 10 on a pain scale. Neuro: Level of Consciousness is awake, alert, obeys commands, Oriented to person, place, time, situation, Speech is normal, Facial symmetry appears normal. Historical: - Allergies: 03:11 No Known Allergies; tw5 - PMHx: 03:11 Diabetes - NIDDM; Hypertension; MRSA; tw5 - PSHx: 05:39 right nephrectomy; Skin grafting; kl - Immunization history:: Flu vaccine is up to date. - Social history:: Smoking status: Patient denies any tobacco usage or history of. Screenin:15 Patient has been NPO before screening. The patient is alert, able to follow commands. kl The patient does not exhibit slurred or garbled speech The patient is not exhibiting difficulty speaking. The patient does not exhibit difficulty understanding words. The patient is able to swallow own secretions with no drooling or need for suction. Patient tolerated one teaspoon of water. No drooling, immediate coughing, gurgling, or clearing of the throat was noted. The patient tolerated 90mL of water. No drooling, immediate coughing, gurgling, or clearing of the throat was noted. The patient passed the bedside swallow screening. Oral medications may be given as ordered. Contact Physician for further diet orders. Fall Risk None identified. No fall in past 12 months (0 pts). IV access (20 points). Ambulatory Aid- None/Bed Rest/Nurse Assist (0 pts). Gait- Normal/Bed Rest/Wheelchair (0 pts) Mental Status- Oriented to own ability (0 pts). 05:40 Abuse screen: Denies threats or abuse. Nutritional screening: No deficits noted. kl Tuberculosis screening: No symptoms or risk factors identified. Assessment: 03:15 General: Appears in no apparent distress. comfortable, Behavior is calm, cooperative. kl 03:15 Pain: Denies pain. Neuro: No deficits noted. Level of Consciousness is awake, alert, kl obeys commands, Oriented to person, place, time, situation, Farm Machinery E[employer] are equal bilaterally Moves all extremities. Gait is steady, Speech is normal, Facial droop on right, Facial symmetry: tongue is midline, Pupils are PERRLA. Cardiovascular: No deficits noted. Rhythm is sinus rhythm. Respiratory: No deficits noted. Airway is patent Trachea midline Respiratory effort is even, unlabored, Respiratory pattern is regular, symmetrical. Respiratory:. GI: No deficits noted. No signs and/or symptoms were reported involving the gastrointestinal system. : No deficits noted. No signs and/or symptoms were reported regarding the genitourinary system. EENT: No deficits noted. No signs and/or symptoms were reported regarding the EENT system. Derm: dressing to right flank. 07:00 Reassessment: Report received FILEMON Ramírez. mb9 07:40 General: Appears in no apparent distress. comfortable, Behavior is calm, cooperative, mb9 appropriate for age. Pain: Complains of pain in head Pain does not radiate. Pain currently is 5 out of 10 on a pain scale. Quality of pain is described as pulsating, Is intermittent. Neuro: Level of Consciousness is awake, alert, obeys commands, Oriented to person, place, time, situation, Appropriate for age Farm Machinery Erector are equal bilaterally Moves all extremities. Gait is steady, Speech is normal, Facial droop on right, Facial symmetry: tongue is midline, Pupils are PERRLA, Intact Reports headache in right parietal area, frontal area, occipital area. Cardiovascular: Heart tones S1 S2 present Rhythm is regular. Respiratory: Airway is patent Respiratory effort is even, unlabored, Respiratory pattern is regular, symmetrical, Breath sounds are clear bilaterally. GI: Abdomen is round non-distended, Bowel sounds present X 4 quads. Abd is soft and non tender X 4 quads. : No signs and/or symptoms were reported regarding the genitourinary system. EENT: No signs and/or symptoms were reported regarding the EENT system. Derm: dressing to right flank. Musculoskeletal: Range of motion: intact in all extremities. 08:35 Reassessment: Dr. Garza at bedside. mb9 09:35 Reassessment: No changes from previously documented assessment. Patient states feeling mb9 better. Patient states symptoms have improved. Vital Signs: 03:06 BP 209 / 98; Pulse 83; Resp 18; Temp 98.3; Pulse Ox 96% ; Weight 78.02 kg; Height 5 ft. tw5 0 in. (152.40 cm); Pain 8/10; 03:45 BP 175 / 86; Pulse 74; kl 04:00 BP 173 / 75; Pulse Ox 92% ; kl 04:30 BP 172 / 80; Pulse 82; Resp 16; Pulse Ox 98% ; kl 05:00 BP 178 / 74; kl 06:09 BP 147 / 73; Pulse 71; Pulse Ox 93% on R/A; kl 07:38 BP 177 / 95; Pulse 78; Resp 18; Temp 98.3; Pulse Ox 100% on R/A; Pain 5/10; mb9 09:33 BP 149 / 67; Pulse 75; Resp 18; Pulse Ox 95% on R/A; mb9 11:44 BP 163 / 79; Pulse 77; Resp 18; Pulse Ox 98% on R/A; Pain 0/10; mb9 03:06 Body Mass Index 33.59 (78.02 kg, 152.40 cm) tw5 NIH Stroke Scale Scores: 03:15 NIHSS Score: 1 kl 03:40 NIHSS Score: 1 ms3 07:39 NIHSS Score: 1 mb9 ED Course: 03:06 Patient arrived in ED. tw5 03:07 Uriel Ibarra DO is Attending Physician. ms3 03:10 Triage completed. tw5 03:11 Arm band placed on. tw5 04:00 Inserted saline lock: 20 gauge in left antecubital area, using aseptic technique. Blood kl collected. 05:47 No provider procedures requiring assistance completed. kl 06:19 John Garza MD is Hospitalizing Provider. ms3 06:43 Patient has correct armband on for positive identification. kl 06:43 Patient admitted, IV remains in place. kl 07:08 CXR XRAY In Process Unspecified. EDMS 07:08 CT Head Brain wo Cont In Process Unspecified. EDMS 07:09 Lisseth Leger RN is Primary Nurse. mb9 09:09 Abdomen In Process Unspecified. EDMS Administered Medications: 04:00 Drug: Labetalol 10 mg Route: IV; Rate: calculated rate; Site: left antecubital; kl 06:26 Follow up: Response: No adverse reaction kl 06:41 Drug: Aspirin 81 mg Route: PO; kl Medication: 06:43 VIS not applicable for this client. kl Outcome: 06:19 Decision to Hospitalize by Provider. ms3 06:42 Admitted to ER Hold. Please see [facility] for further documentation. kl 06:42 Condition: stable 06:42 Discharge instructions given to patient, Instructed on the need for admit, Demonstrated understanding of instructions. 15:29 Patient left the ED. mb9 NIH Stroke Scale - NIH Stroke Score Date: 05/17/2022 Time: 03:15 Total Score = 1 1a. Level of Consciousness (LOC) - 0(Alert) 1b. Level of Consciousness (LOC) (Month \\T\\ Age) - 0(Both) 1c. LOC Commands (Open \\T\\ Closes Eyes/Gusset Maker) - 0(Both) 2. Best Gaze (Lateral Gaze Paresis) - 0(Normal) 3. Visual Field Loss - 0(No visual loss) 4. Facial Palsy - 1(Minor Paralysis) 5a. Left Arm: Motor (10-second hold) - 0(No drift) 5b. Right Arm: Motor (10-second hold) - 0(No drift) 6a. Left Leg: Motor (5-second hold - always test supine) - 0(No drift) 6b. Right Leg: Motor (5-second hold - always test supine) - 0(No drift) 7. Limb Ataxia (finger/nose \\T\\ heel/castro - test with eyes open) - 0(Absent) 8. Sensory Loss (pinprick arms/legs/face) - 0(Normal) 9. Best Language: Aphasia (description/naming/reading) - 0(No aphasia) 10. Dysarthria (speech clarity - read or repeat words) - 0(Normal) 11. Extinction and Inattention (visual/tactile/auditory/spatial/personal) - 0(No abnormality) Initials: NIH Stroke Scale - NIH Stroke Score Date: 05/17/2022 Time: 03:40 Total Score = 1 1a. Level of Consciousness (LOC) - 0(Alert) 1b. Level of Consciousness (LOC) (Month \\T\\ Age) - 0(Both) 1c. LOC Commands (Open \\T\\ Closes Eyes/Gusset Maker) - 0(Both) 2. Best Gaze (Lateral Gaze Paresis) - 0(Normal) 3. Visual Field Loss - 0(No visual loss) 4. Facial Palsy - 1(Minor Paralysis) 5a. Left Arm: Motor (10-second hold) - 0(No drift) 5b. Right Arm: Motor (10-second hold) - 0(No drift) 6a. Left Leg: Motor (5-second hold - always test supine) - 0(No drift) 6b. Right Leg: Motor (5-second hold - always test supine) - 0(No drift) 7. Limb Ataxia (finger/nose \\T\\ heel/castro - test with eyes open) - 0(Absent) 8. Sensory Loss (pinprick arms/legs/face) - 0(Normal) 9. Best Language: Aphasia (description/naming/reading) - 0(No aphasia) 10. Dysarthria (speech clarity - read or repeat words) - 0(Normal) 11. Extinction and Inattention (visual/tactile/auditory/spatial/personal) - 0(No abnormality) Initials: ms3 NIH Stroke Scale - NIH Stroke Score Date: 05/17/2022 Time: 07:39 Total Score = 1 1a. Level of Consciousness (LOC) - 0(Alert) 1b. Level of Consciousness (LOC) (Month \\T\\ Age) - 0(Both) 1c. LOC Commands (Open \\T\\ Closes Eyes/Gusset Maker) - 0(Both) 2. Best Gaze (Lateral Gaze Paresis) - 0(Normal) 3. Visual Field Loss - 0(No visual loss) 4. Facial Palsy - 1(Minor Paralysis) 5a. Left Arm: Motor (10-second hold) - 0(No drift) 5b. Right Arm: Motor (10-second hold) - 0(No drift) 6a. Left Leg: Motor (5-second hold - always test supine) - 0(No drift) 6b. Right Leg: Motor (5-second hold - always test supine) - 0(No drift) 7. Limb Ataxia (finger/nose \\T\\ heel/castro - test with eyes open) - 0(Absent) 8. Sensory Loss (pinprick arms/legs/face) - 0(Normal) 9. Best Language: Aphasia (description/naming/reading) - 0(No aphasia) 10. Dysarthria (speech clarity - read or repeat words) - 0(Normal) 11. Extinction and Inattention (visual/tactile/auditory/spatial/personal) - 0(No abnormality) Initials: marko Signatures: Dispatcher [employer] Desiree Ash RN RN kl Sims, Marcus, DO DO ms3 Paola Mtz 5 Lisseth Leger RN FILEMON [email or web address] Corrections: (The following items were deleted from the chart) 05:47 04:00 Inserted saline lock: 20 gauge in right antecubital area, using aseptic kl technique. Blood collected. 07:39 07:17 Reassessment: Report received FILEMON Ramírez mb9
[2022-05-17 07:57] LABS: SARS-CoV-2 Antigen Rapid Res Negative (Negative)
--- NOTE | 2022-05-17 09:29 | RAD REPORT ---
EXAM DESCRIPTION: CT - Abdomen Pelvis W Contrast - 05/17/2022 9:07 am CLINICAL HISTORY: Abdominal pain/abdominal wound COMPARISON: 2017 TECHNIQUE: Computed axial tomography of the abdomen pelvis was obtained. 100 cc Isovue-300 was admin istered intravenously. Oral contrast was not requested which limits evaluation of bowel and appendix All CT scans are performed using dose optimization technique as appropriate and may include automated exposure control or mA/KV adjustment according to patient size. FINDINGS: Mild fatty liver Spleen, pancreas, adrenals and left kidney are unremarkable. Right nephrectomy Normal appendix. No adnexal mass. Ulceration involves the subcutaneous tissue right posterolateral abdomen. Ill-defined fluid extends f rom the ulceration through to the abdominal wall into the posterior aspect of the right renal fossa. It abuts the lateral aspect of the right psoas muscle. The fluid measures 1.5 centimeters in thicknes s. There is no evidence of diverticulitis. Small to moderate umbilical hernia contains fat IMPRESSION: Ulceration involves the subcutaneous tissue right posterolateral abdomen. Ill-defined fl uid extends from the ulceration through to the abdominal wall into the posterior aspect of the right renal fossa. It abuts the lateral aspect of the right psoas muscle. The fluid measures 1.5 centimeter s in thickness.
[2022-05-17 13:29] VITALS: BMI 31.4
[2022-05-17] MEDS ORDERED: ONDANSETRON 4 MG/2 ML VIAL IV PRN (13:49)
[2022-05-17] MEDS ORDERED: ACETAMINOPHEN 500 MG TAB PO PRN (13:49)
--- NOTE | 2022-05-17 13:57 | P.HP ---
Certification for Inpatient Patient admitted to: Inpatient With expected LOS: >2 Midnights Patient will require the following post-hospital care: None Practitioner: I am a practitioner with admitting privileges, knowledge of patient current condition, hospital course, and medical plan of care. Services: Services provided to patient in accordance with Admission requirements found in Title 42 Section 412.3 of the Code of Federal Regulations Patient History Date of Service: 05/17/22 Reason for admission: Facial droop History of Present Illness: She is a 57-year-old female who comes to the hospital with facial droop. Patient has weakness on the right side of the face. This is Naik's palsy. Patient does not have any extremity findings. Patient CT scan is negative. Patient will be admitted for treatment of Naik's palsy. She also was noted to have drainage from a surgical site on the right side. Apparently she had a nephrectomy. No prior records regarding this so we will get CT imaging. Patient will be admitted for further treatment. Allergies No Known Allergies Allergy (Unverified 09/21/16 15:00) Home Medications: Insulin NPH Hum/Reg Insulin Hm [Novolin 70-30 100 Unit/ml Vial] 13 unit SQ BEDTIME 05/17/22 Insulin NPH Hum/Reg Insulin Hm [Novolin 70-30 100 Unit/ml Vial] 26 units SQ DAILY 05/17/22 Meloxicam 15 mg PO DAILY 05/17/22 Metformin HCl 500 mg PO DAILY 05/17/22 Amlodipine [Norvasc*] 10 mg PO DAILY #30 tab 05/18/22 Atorvastatin Calcium [Lipitor] 80 mg PO BEDTIME #30 tab 05/18/22 Losartan Potassium [Cozaar*] 50 mg PO BID #60 tab 05/18/22 Valacyclovir HCl [Valtrex] 1,000 mg PO TID #21 tab 05/18/22 predniSONE [Deltasone] 20 mg PO BID #11 tab 05/18/22 - Past Medical/Surgical History Diabetic: Yes -: HTN -: MRSA -: Right nephrectomy -: Skin Grafting - Family History Father Family History: Reviewed- Non-Contributory - Social History Smoking Status: Never smoker Alcohol use: No CD- Drugs: No Review of Systems 10-point ROS is otherwise unremarkable Physical Examination - Vital Signs Temperature: 98 F Blood Pressure: 140/70 Pulse: 80 Respirations: 18 Pulse Ox (%): 96 - Physical Exam General: Alert, In no apparent distress, Oriented x3 HEENT: Atraumatic, PERRLA, Mucous membr. 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 Antibiotic therapy and steroid therapy 2. CT scan of the abdomen 3. Antiplatelet and statin therapy 4. Repeat CT imaging in the morning 5. GI DVT prophylaxis Discharge Plan: Home Plan to discharge in: Greater than 2 days - Advance Directives Does patient have a Living Will: No Does patient have a Durable POA for Healthcare: No - Code Status/Comfort Care Code Status Assessed: Yes Code Status: Full Code Critical Care: No Time Spent Managing PTS Care (In Minutes): 45
[2022-05-17] MEDS ORDERED: NA CHLORIDE 0.9% 1,000 ML IV SCH (14:00)
--- NOTE | 2022-05-17 15:32 | RAD REPORT ---
EXAM DESCRIPTION: USCarotid Artery [id number]/3/2022 3:11 pm CLINICAL HISTORY: TIA COMPARISON: None FINDINGS: The velocity of the right internal carotid artery equals 103 cm/sec. The right ICA/CCA rat io 1.3 The velocity of the left internal carotid artery equals 116 cm/sec. The left ICA/CCA ratio 1.3 Carotid arteries are tortuous. No significant plaque The vertebral arteries demonstrate antegrade flow IMPRESSION: Tortuous carotid arteries. Otherwise unremarkable exam NASCET criteria used. Mild 0-49% stenosis Moderate 50-69% stenosis Severe 70-99% stenosis
[2022-05-17 15:42] VITALS: O2SAT 98
[2022-05-17] MEDS ORDERED: GLUCAGON 1 MG/VIAL IM PRN (15:56)
[2022-05-17] MEDS ORDERED: D50W 25 GM/50 ML SYRINGE IV PRN (15:56)
[2022-05-17] MEDS ORDERED: AMLODIPINE 5 MG TAB PO ONE (15:56)
[2022-05-17] MEDS: PIPER TAZO 3.375 GM in NA CHLORIDE 0.9% 100 ML IV SCH (16:26)
[2022-05-17] MEDS: dexAMETHasone 10 MG/ML VIAL IV SCH (16:27)
[2022-05-17] MEDS: INSULIN 70/30 100 UNITS/ML SQ SCH (16:49)
[2022-05-17] MEDS ORDERED: HYDRALAZINE HCL 20 MG/ML VIAL IV PRN (18:00)
--- NOTE | 2022-05-17 20:04 | RAD REPORT ---
EXAM DESCRIPTION: CT - Head Brain Wo Cont - 05/17/2022 7:17 am CLINICAL HISTORY: Facial droop, right arm numbness TECHNIQUE: 5 mm axial images were obtained through the brain without IV contrast. This exam was perf ormed according to our departmental dose-optimization program which includes use of Automated Exposur e Control, adjustment of the mA and/or kV according to patient size and/or use of iterative reconstru ction technique. COMPARISON: None. FINDINGS: The brain parenchyma appears age appropriate. There is no intra-axial or extra-axial ble ed seen. There is no mass or mass effect. There is no evidence of hydrocephalus. The orbital contents appear unremarkable. The visualized paranasal sinuses and mastoid air cells are patent. No fracture is present. IMPRESSION: No acute intracranial abnormality. Electronically signed by: Justin Lopez MD 05/17/2022 4:58 AM GEOTHERMAL OPERATIONS MANAGER Due to temporary technical issues with the PACS/Fluency reporting system, reports are being signed by the in house radiologists without review as a courtesy to insure prompt reporting. The interpreting radiologist is fully responsible for the content of the report.
--- NOTE | 2022-05-17 20:07 | RAD REPORT ---
EXAM DESCRIPTION: RAD - Chest Single View - 05/17/2022 4:06 am CLINICAL HISTORY: The patient is 57 years old and is Female; facial numbness TECHNIQUE: Frontal view of the chest. COMPARISON: No relevant prior studies available. FINDINGS: Lungs: Unremarkable. No consolidation. Pleural space: Unremarkable. No pneumothorax. Heart: Unremarkable. Mediastinum: Unremarkable. Bones/joints: Unremarkable. IMPRESSION: No acute findings in the chest. Electronically signed by: Ok Grajeda MD 05/17/2022 4:20 AM FAT PRESSROOM WORKER Due to temporary technical issues with the PACS/Fluency reporting system, reports are being signed by the in house radiologists without review as a courtesy to insure prompt reporting. The interpreting radiologist is fully responsible for the content of the report.
[2022-05-17] MEDS: ACYCLOVIR INJ 400 MG in NA CHLORIDE 0.9% 100 ML IVPB SCH (20:19)
[2022-05-17] MEDS: LOSARTAN POTASSIUM 50 MG TABLET PO SCH (20:20)
[2022-05-17] MEDS ORDERED: ATORVASTATIN 20 MG TAB PO SCH (21:00)
[2022-05-18] MEDS: PIPER TAZO 3.375 GM in NA CHLORIDE 0.9% 100 ML IV SCH ×2 (01:19→08:33)
[2022-05-18] MEDS: dexAMETHasone 10 MG/ML VIAL IV SCH ×2 (01:20→08:36)
[2022-05-18] MEDS: ACYCLOVIR INJ 400 MG in NA CHLORIDE 0.9% 100 ML IVPB SCH ×2 (01:26→12:12)
[2022-05-18 05:59] LABS: Absolute Lymphocytes (CBC) 0.8 K/uL (0.7-4.9); Hematocrit 41.8 % (36.0-45.0); Lymphocytes % 7.8 % (15.3-44.8); MCV 80.4 fL (80-100); MPV 9.5 fL (7.6-11.3)
[2022-05-18 06:12] LABS: Bilirubin Total 0.5 mg/dL (0.2-1.0); Magnesium 1.9 mg/dL (1.8-2.4); Potassium 4.2 mmol/L (3.5-5.1)
[2022-05-18] MEDS: INSULIN 70/30 100 UNITS/ML SQ SCH (07:30)
[2022-05-18] MEDS ORDERED: AMLODIPINE 10 MG TAB PO SCH (09:00)
[2022-05-18] MEDS ORDERED: ASPIRIN EC 81 MG TAB PO SCH (09:00)
[2022-05-18] MEDS ORDERED: ENOXAPARIN 40 MG/0.4 ML SQ SCH (09:00)
[2022-05-18 09:57] LABS: Blood Morphology Comment NOT SEEN (NOT SEEN); Platelet Estimate ADEQ; White Blood Cell Scan OK (OK)
[2022-05-18] MEDS: LOSARTAN POTASSIUM 50 MG TABLET PO SCH (10:35)
--- NOTE | 2022-05-18 12:19 | RAD REPORT ---
EXAM DESCRIPTION: CT - Head Brain Wo Cont - 05/18/2022 11:59 am CLINICAL HISTORY: New onset blurry vision in the right eye, recent episode facial droop and right ar m numbness COMPARISON: Head Brain Wo Cont dated 05/17/2022 TECHNIQUE: Axial 5 mm thick images of the head were obtained without IV contrast. All CT scans are performed using dose optimization technique as appropriate and may include automated exposure control or mA/KV adjustment according to patient size. FINDINGS: No intracranial hemorrhage, mass, edema or shift of mid-line structures. No acute cortical infarction changes seen. No atrophy or chronic ischemic change seen. Ventricles are normal size. No abnormal extra-axial fluid collections. Mastoid air cells and visualized portions of the paranasal sinuses are clear. No acute bony findings. IMPRESSION: No acute intracranial finding. No identifiable change from 05/17/2022 exam.
--- NOTE | 2022-05-18 12:22 | RAD REPORT ---
EXAM DESCRIPTION: CT - Head angio - 05/18/2022 11:59 am CLINICAL HISTORY: blurry vision rt eye TECHNIQUE: During dynamic enhancement using nonionic IV contrast, axial 1 millimeter thick images of the head were obtained. Sagittal and axial reconstruction images were generated using MIP technique and reviewed. All CT scans are performed using dose optimization technique as appropriate and may include automated exposure control or mA/KV adjustment according to patient size. COMPARISON: CT head same FINDINGS: No aneurysm or vascular malformation identified. Major venous sinuses are patent. No stenosis, named branch occlusion, vasculitis or other significant vascular finding identifiable. D istal vertebral arteries and basilar artery are small in size. The patient has bilateral posterior co mmunicating arteries present supplying most or all of the posterior cerebral artery circulation. This is a normal anatomic variant. IMPRESSION: Negative CT angio head examination for acute finding.
[2022-05-18] MEDS ORDERED: INSULIN 70/30 100 UNITS/ML SQ SCH (16:30)
[2022-05-18 17:28] VITALS: BP 140/70; TEMP 98
--- NOTE | 2022-05-18 17:30 | P.DS ---
Discharge Date: 05/18/22 Disposition: ROUTINE DISCHARGE Discharge Condition: GOOD Reason for Admission: Facial droop - Problems (1) Naik's palsy Current Visit: Yes Status: Acute (2) TIA (transient ischemic attack) Current Visit: Yes Status: Acute (3) Open abdominal incision with drainage Current Visit: Yes Status: Acute Brief History of Present Illness: She is a 57-year-old female who comes to the hospital with facial droop. Patient has weakness on the right side of the face. This is Naik's palsy. Patient does not have any extremity findings. Patient CT scan is negative. Patient will be admitted for treatment of Naik's palsy. She also was noted to have drainage from a surgical site on the right side. Apparently she had a nephrectomy. No prior records regarding this so we will get CT imaging. Patient will be admitted for further treatment. Hospital Course: Patient has done well during hospitalization. Clinical symptoms are improving. She will wear a patch on the right eye. She will continue with antiviral and steroid therapy. Repeat CT imaging was negative. 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 Patient neurology follow-up for Naik's palsy. At this time, patient is stable for discharge. We did add BP medications to get better blood pressure control going forward. Vital Signs/Physical Exam: Temp Pulse Resp BP Pulse Ox 98 F 80 18 140/70 96 05/18/22 17:28 05/18/22 17:28 05/18/22 17:28 05/18/22 17:28 05/18/22 17:28 General: Alert, In no apparent distress, Oriented x3 Laboratory Data at Discharge: WBC 10.20 K/uL (4.3-10.9) 05/18/22 05:25 Hgb 13.8 g/dL (12.0-15.0) 05/18/22 05:25 Hct 41.8 % (36.0-45.0) 05/18/22 05:25 Plt Count 195 K/uL (152-406) 05/18/22 05:25 PT 9.1 SECONDS (9.5-12.5) L 05/17/22 03:30 INR 0.83 05/17/22 03:30 APTT 28.7 SECONDS (24.3-36.9) 05/17/22 03:30 Sodium 136 mmol/L (136-145) 05/18/22 05:25 Potassium 4.2 mmol/L (3.5-5.1) 05/18/22 05:25 BUN 16 mg/dL (7-18) 05/18/22 05:25 Creatinine 0.88 mg/dL (0.55-1.3) 05/18/22 05:25 Glucose 319 mg/dL (74-106) H 05/18/22 05:25 Magnesium Cancelled 05/18/22 06:00 Total Bilirubin 0.5 mg/dL (0.2-1.0) 05/18/22 05:25 AST 13 U/L (15-37) L 05/18/22 05:25 ALT 25 U/L (12-78) 05/18/22 05:25 Alkaline Phosphatase 86 U/L (45-117) 05/18/22 05:25 Triglycerides 176 mg/dL (<150) H 05/18/22 05:25 Cholesterol 259 mg/dL (<200) H 05/18/22 05:25 HDL Cholesterol 47 mg/dL (40-60) 05/18/22 05:25 Cholesterol/HDL Ratio 5.51 05/18/22 05:25 Home Medications: Insulin NPH Hum/Reg Insulin Hm [Novolin 70-30 100 Unit/ml Vial] 13 unit SQ BEDTIME 05/17/22 Insulin NPH Hum/Reg Insulin Hm [Novolin 70-30 100 Unit/ml Vial] 26 units SQ DAILY 05/17/22 Meloxicam 15 mg PO DAILY 05/17/22 Metformin HCl 500 mg PO DAILY 05/17/22 Amlodipine [Norvasc*] 10 mg PO DAILY #30 tab 05/18/22 Atorvastatin Calcium [Lipitor] 80 mg PO BEDTIME #30 tab 05/18/22 Losartan Potassium [Cozaar*] 50 mg PO BID #60 tab 05/18/22 Valacyclovir HCl [Valtrex] 1,000 mg PO TID #21 tab 05/18/22 predniSONE [Deltasone] 20 mg PO BID #11 tab 05/18/22 New Medications: Losartan Potassium [Cozaar*] 50 mg PO BID #60 tab Atorvastatin Calcium [Lipitor] 80 mg PO BEDTIME #30 tab Amlodipine [Norvasc*] 10 mg PO DAILY #30 tab predniSONE [Deltasone] 20 mg PO BID #11 tab Valacyclovir HCl [Valtrex] 1,000 mg PO TID #21 tab Physician Discharge Instructions: -DC IV and DC home -Follow-up with PCP in 1 to 2 weeks -Follow-up with Neurology(Naik's Palsy) and Urology(fistula s/p nephrectomy) in 1 to 2 weeks -Please call Dr. Garza at [phone] if any questions regarding hospital stay -Please call nursing station at [phone] if any nursing or medication questions -Return to the emergency room if symptoms worsen Diet: AHA Activity: Fall precautions Followup: NONE,NONE [Primary Care Provider] - Time spent managing pt's care (in minutes): 35
--- NOTE | 2022-05-19 13:52 | EKG ---
Test Date: 2022-05-17 Test Time: 03:34:42 [employer] Consultant: JUAN MEASUREMENT RESULTS: Intervals: Rate: 67 NJ: 132 QRSD: 78 QT: 380 QTc: 401 [place]: P: 49 NJ: 132 QRS: 22 T: 79 INTERPRETIVE STATEMENTS: Normal sinus rhythm with sinus arrhythmia Normal ECG No previous ECG available for comparison Electronically Signed On 05-19-22 13:50:06 LEGAL MEDIATOR by Efra Tidwell
== END 2022-05-18 17:40 | disposition home or self-care (01) | DRG 74 ==
LOC: ER 02:57 → ERHOLD 12:04 → 4TH 14:58
PROVIDERS: ADMIT Hospitalist; ATTEND Hospitalist
DX: G51.0 Bell's palsy (principal); G45.9 Transient cerebral ischemic attack, unspecified; E11.65 Type 2 diabetes mellitus with hyperglycemia; I10 Essential (primary) hypertension; R29.701 NIHSS score 1; R20.2 Paresthesia of skin; Z79.4 Long term (current) use of insulin; Z86.14 Personal history of Methicillin resistant Staphylococcus aureus infection; Z90.49 Acquired absence of other specified parts of digestive tract; Z79.84 Long term (current) use of oral hypoglycemic drugs; Z79.52 Long term (current) use of systemic steroids; Z79.899 Other long term (current) drug therapy; Z20.822 Contact with and (suspected) exposure to COVID-19
CPT/HCPCS: 36415; 70450; 70496; 71045; 74177; 80048; 80053; 80061; 82947; 83735; 84145; 84484; 85025; 85610; 85730; 87811; 93005; 93880; 96374; 99285; J0133; J1100; J1650; J1815; J2543; J7030; Q9967